=== PATIENT | male | born 1955 | race Caucasian/White ===

== ENCOUNTER → 2017-06-30 | Outpatient (REF) ==
[~2017-06-30] MED LIST: ACULAR OPHTH DR10 ML OP; AMOXICILLIN 8751 TAB PO; GLUCOSAMINE & C1 CA1 PO; MOBIC15 MG PO; OCUFLOX 10 ML10 ML OP; PRED FORTE 1 ML1 ML OP; TEARS NATURALE15 M1 OP; TESTOSTERON200 MG/ML IM; ULTRAM 50MG TAB50 MG PO; VITAMIN C500 MG PO; VITAMIN D1000 IU PO
== END ==
LOC: ZLAB.WCH 18:25
DX: Z01.89 Encounter for other specified special examinations (principal)